=== PATIENT | male | born 1985 | race Caucasian/White ===

== ENCOUNTER 2022-03-21 08:38 | Emergency (ER) | payer OTHER, SELFPAY ==
--- NOTE | 2022-03-21 08:41 | ED.ABDPAIN ---
HPI - Abdominal Pain General Chief Complaint: Abdominal Pain Stated Complaint: Abdominal pain, upper right quadrant Time Seen by Provider: 03/21/22 08:41 Source: patient and RN notes reviewed History of Present Illness HPI narrative: Patient is a 36-year-old male who presents the urgent care with complaints of left upper abdominal pain. Patient states he noticed it approximately 4 days ago after eating. Patient states he is not having any discomfort at this time. States that it feels like a dull pain/pressure. Patient states he works at the [employer] throwing [employer] but denies of any known injury or trauma. Patient denies any vomiting or nausea. Denies a fever. Patient has not taken anything [id number] for his symptoms. No other acute complaints. No acute distress noted. Patient aware of the plan of care. Some parts of this dictation were generated by voice recognition software and may contain typographical and/or grammatical inaccuracies. Related Data Home Medications Medication Instructions Recorded Confirmed No Home Medications 03/21/22 03/21/22 Allergies Allergy/AdvReac Type Severity Reaction Status Date / Time No Known Allergies Allergy Verified 03/21/22 08:56 Review of Systems Review of Systems: CONSTITUTIONAL: Denies fever, chills, or sweats. EYES: Denies visual changes, redness, or discharge. ENT: Denies rhinorrhea, congestion, sore throat, or otalgia. CARDIOVASCULAR: Denies chest pain, palpitations, or edema. RESPIRATORY: Denies cough or dyspnea. GASTROINTESTINAL: Reports of left upper abdominal pain without nausea, vomiting or diarrhea GENITOURINARY: Denies dysuria or hematuria. SKIN: Denies rash or itching. MUSCULOSKELETAL: Denies back pain, joint pain, or myalgia. NEUROLOGIC: Denies headache, numbness, or weakness. All other systems reviewed are negative, except as documented in HPI. [facility] Surgical History Surgical History H/O hernia repair Family History Family History Father Family history of atrial fibrillation Grandparent Carcinoma of colon Social History Social History (Updated 04/27/20 @ 14:18 by Juanita Castelan CMA) Smoking status: Never smoker Second hand tobacco smoke exposure: No Alcohol intake: current Alcohol use details: 1 or 2 drinks a month Substance use: never Substance use type: does not use Comments At the time of my signature, I reviewed and agree with the nursing past medical, surgical, social, and family history. There is no relevant family history pertinent to the patient complaint. Exam Narrative: GENERAL: This is a well-nourished, well-developed patient, in no apparent distress. HEAD: normocephalic, atraumatic. EYES: PERRL. Sclera clear/white. Vision is grossly intact. EARS: External ears normal NOSE: External nose normal with no obvious nasal discharge, nares without redness, no rhinorrhea. THROAT: Mucous membranes moist NECK: Neck supple CARDIOVASCULAR: Regular rate and rhythm without murmurs, gallops, or rubs. RESPIRATORY: Clear to auscultation. Breath sounds equal bilaterally. No wheezes, rales, or rhonchi. GASTROINTESTINAL: Abdomen soft, mild tenderness to left upper abdomen/epigastric region. Nondistended. Bowel sounds are active. No guarding. SKIN: warm, intact with no suspicious lesions or rash, good texture and turgor. NEURO: awake, alert, and oriented to person, place and time. There were no obvious focal neurologic abnormalities. EXTREMITIES: No clubbing, cyanosis, or edema. Course Course Level of Care: Express Care Visit Vital Signs Vital signs: Vital Signs Temperature 97.1 F L 03/21/22 08:49 Pulse Rate 71 03/21/22 08:49 Respiratory Rate 16 03/21/22 08:49 Blood Pressure 122/71 03/21/22 08:49 Pulse Oximetry 98 03/21/22 08:49 Oxygen Delivery Room Air 03/21/22 08:49 Temperature 97.1 F
[2022-03-21 08:49] VITALS: BP 122/71; PULSE 71; RESP 16; TEMP 36.2; O2SAT 98
== END 2022-03-21 09:12 | disposition home or self-care (01) ==
PROVIDERS: Emergency Provider Nurse Practitioner Family
DX: R10.12 Left upper quadrant pain (principal); Z86.16 Personal history of COVID-19
CPT/HCPCS: 99211; G0463

== ENCOUNTER 2022-07-31 18:56 | Emergency (ER) | payer OTHER, SELFPAY ==
[2022-07-31 19:00] VITALS: BP 130/82; PULSE 78; RESP 20; TEMP 36.8; O2SAT 99
--- NOTE | 2022-07-31 19:04 | ED.URI ---
HPI - URI/Sore Throat General Chief Complaint: Upper Respiratory Infection Stated Complaint: can't talk sore throat Source: patient and RN notes reviewed History of Present Illness HPI Narrative: 37-year-old male presents to urgent care with complaints of a hoarse and sore throat for approximately 10 days. Patient is also reporting a dry cough. Patient states his cough is worse at nighttime. Denies any fevers, chills, congestion, ear pain, chest pain, shortness of breath, vomiting, or diarrhea. Patient has taken NyQuil with minimal relief. Related Data Allergies Allergy/AdvReac Type Severity Reaction Status Date / Time No Known Allergies Allergy Verified 03/21/22 08:56 Review of Systems Review of Systems: CONSTITUTIONAL: Denies fever, chills, or sweats. EYES: Denies visual changes, redness, or discharge. ENT: sore throat CARDIOVASCULAR: Denies chest pain, palpitations, or edema. RESPIRATORY: cough GASTROINTESTINAL: Denies abdominal pain, nausea, vomiting, or diarrhea. GENITOURINARY: Denies dysuria or hematuria. SKIN: Denies rash or itching. MUSCULOSKELETAL: Denies back pain, joint pain, or myalgia. NEUROLOGIC: Denies headache, numbness, or weakness. PMFSH Surgical History Surgical History H/O hernia repair Family History Family History Father Family history of atrial fibrillation Grandparent Carcinoma of colon Social History Social History (Updated 04/27/20 @ 14:18 by Juanita aCstelan CMA) Smoking status: Never smoker Second hand tobacco smoke exposure: No Alcohol intake: current Alcohol use details: 1 or 2 drinks a month Substance use: never Substance use type: does not use Comments At the time of my signature, I reviewed and agree with the nursing past medical, surgical, social, and family history. There is no relevant family history pertinent to the patient complaint. Exam Narrative: GENERAL: This is a well-nourished, well-developed patient, in no apparent distress. HEAD: normocephalic, atraumatic. EYES: PERRL. Sclera clear/white. Vision is grossly intact. EARS: External ears normal, auditory canals clear and without drainage, TMs normal without perforation. Hearing grossly intact. NOSE: External nose normal with no obvious nasal discharge, nares without redness, no rhinorrhea. THROAT: Mucous membranes moist, posterior pharynx erythemic. NECK: Neck supple, non-tender without lymphadenopathy, masses or thyromegaly. CARDIOVASCULAR: Regular rate and rhythm without murmurs, gallops, or rubs. RESPIRATORY: Clear to auscultation. Breath sounds equal bilaterally. No wheezes, rales, or rhonchi. GASTROINTESTINAL: Abdomen soft, non-tender, nondistended. Bowel sounds are active. No hepato-splenomegaly, or palpable masses. No guarding. SKIN: warm, intact with no suspicious lesions or rash, good texture and turgor. NEURO: awake, alert, and oriented to person, place and time. There were no obvious focal neurologic abnormalities. Course Course Level of Care: Express Care Visit Vital Signs Vital signs: Vital Signs Temperature 98.3 F 07/31/22 19:00 Pulse Rate 78 07/31/22 19:00 Respiratory Rate 20 07/31/22 19:00 Blood Pressure 130/82 07/31/22 19:00 Pulse Oximetry 99 07/31/22 19:00 Oxygen Delivery Room Air 07/31/22 19:00 Temperature 98.3 F 07/31/22 19:00 Pulse Rate 78 07/31/22 19:00 Respiratory Rate 20 07/31/22 19:00 Blood Pressure 130/82 07/31/22 19:00 Pulse Oximetry 99 07/31/22 19:00 Oxygen Delivery Room Air 07/31/22 19:00 Reviewed MDM - URI/Sore Throat MDM Narrative Medical decision making narrative: Some parts of this dictation were generated by voice recognition software and may contain typographical and/or grammatical inaccuracies. Use the inhaler as directed. Increase your fluids at home. Increase your vitamin-C. May use a humidifie
== END 2022-07-31 19:28 | disposition home or self-care (01) ==
PROVIDERS: Emergency Provider Nurse Practitioner Family; PCP Internal Medicine
DX: J04.0 Acute laryngitis (principal); J40 Bronchitis, not specified as acute or chronic
CPT/HCPCS: 87081; 87880; 99213; G0463

== ENCOUNTER 2023-05-18 16:22 | Emergency (ER) | payer OTHER, SELFPAY ==
[2023-05-18 16:30] VITALS: BP 135/74; PULSE 65; RESP 18; TEMP 36.2; O2SAT 96
--- NOTE | 2023-05-18 16:31 | ED.CHESTPAIN ---
HPI - Chest Pain General Chief Complaint: Chest Pain Stated Complaint: Chest Pressure and Irregular Heartbeat Source: patient and RN notes reviewed History of Present Illness HPI narrative: 37 yo M presents to urgent care with complaints of chest pressure, SOB mostly with exertion, and palpitations x 2 days. Denies any dizziness, nausea, vomiting, or recent illness. Related Data Home Medications Medication Instructions Recorded Confirmed semaglutide (weight loss) 0.25 0.25 mg subcut WEEKLY 05/18/23 05/18/23 mg/0.5 mL subcutaneous pen injector Allergies Allergy/AdvReac Type Severity Reaction Status Date / Time No Known Allergies Allergy Verified 05/18/23 16:44 Review of Systems Review of Systems: CONSTITUTIONAL: Denies fever, chills, or sweats. EYES: Denies visual changes, redness, or discharge. ENT: Denies otalgia and sore throat CARDIOVASCULAR: palpitations, chest pressure RESPIRATORY: dyspnea. GASTROINTESTINAL: Denies abdominal pain, nausea, vomiting, or diarrhea. GENITOURINARY: Denies dysuria or hematuria. SKIN: Denies rash or itching. MUSCULOSKELETAL: Denies back pain, joint pain, or myalgia. NEUROLOGIC: Denies headache, numbness, or weakness. PMFSH Surgical History Surgical History H/O hernia repair Family History Family History Father Family history of atrial fibrillation Grandparent Carcinoma of colon Social History Social History (Updated 04/27/20 @ 14:18 by Juanita Castelan CMA) Smoking status: Never smoker Second hand tobacco smoke exposure: No Alcohol intake: current Alcohol use details: 1 or 2 drinks a month Substance use: never Substance use type: does not use Comments At the time of my signature, I reviewed and agree with the nursing past medical, surgical, social, and family history. There is no relevant family history pertinent to the patient complaint. Exam Narrative: GENERAL: This is a well-nourished, well-developed patient, in no apparent distress. HEAD: normocephalic, atraumatic. EYES: Sclera clear/white. Vision is grossly intact. EARS: External ears normal, auditory canals clear and without drainage. Hearing grossly intact. NOSE: External nose normal with no obvious nasal discharge, nares without redness, no rhinorrhea. THROAT: Mucous membranes moist, posterior pharynx clear. NECK: Neck supple, non-tender without lymphadenopathy, masses or thyromegaly. CARDIOVASCULAR: Irregular rate and rhythm without murmurs, gallops, or rubs. RESPIRATORY: Clear to auscultation. Breath sounds equal bilaterally. No wheezes, rales, or rhonchi. SKIN: warm, intact with no suspicious lesions or rash, good texture and turgor. NEURO: awake, alert, and oriented to person, place and time. There were no obvious focal neurologic abnormalities. Course Course Level of Care: Express Care Visit Vital Signs Vital signs: Vital Signs Temperature 97.1 F L 05/18/23 16:30 Pulse Rate 65 05/18/23 16:30 Respiratory Rate 18 05/18/23 16:30 Blood Pressure 135/74 05/18/23 16:30 Pulse Oximetry 96 05/18/23 16:30 Oxygen Delivery Room Air 05/18/23 16:30 Temperature 97.1 F L 05/18/23 16:30 Pulse Rate 65 05/18/23 16:30 Respiratory Rate 18 05/18/23 16:30 Blood Pressure 135/74 05/18/23 16:30 Pulse Oximetry 96 05/18/23 16:30 Oxygen Delivery Room Air 05/18/23 16:30 Reviewed MDM - Chest Pain MDM Narrative Medical decision making narrative: Discussed reasons why pt should be evaluated in the ED. Pt agreed to go to [facility] ED. Refused EMS transfer and states he would like his to drive him. is on her way here to take him. Report given to Carlos Eduardo, kiln charger, at [facility], who accepts pt for Dr. Steel. Differential Diagnosis Differential diagnosis: Likely stable angina, atypical chest pain, st elevation myocardial infarc
--- NOTE | 2023-05-18 16:45 | ECG_ITS ---
Measurements Intervals [place] Rate: 144 P: [place]: 0 QRS: 11 QRSD: 90 T: 12 QT: 262 QTc: 406 Interpretive Statements ATRIAL FIBRILLATION WITH RAPID VENTRICULAR RESPONSE DELAYED PRECORDIAL R/S TRANSITION BASELINE ARTIFACT- I, II, III, AVR, AVL, AVF ABNORMAL ECG NO PREVIOUS ECG AVAILABLE FOR COMPARISON Electronically Signed On 05-18-2023 19:20:08 ACCESSIONER by Neri Ortiz D.O.
== END 2023-05-18 16:50 | disposition short-term general hospital (02) ==
PROVIDERS: Emergency Provider Nurse Practitioner Family; PCP Internal Medicine
DX: I48.91 Unspecified atrial fibrillation (principal)
CPT/HCPCS: 93005; 99213; G0463